=== PATIENT | male | born 1980 | race Caucasian/White ===

== ENCOUNTER 2025-01-23 08:28 | Emergency (ER) | payer OTHER ==
[~2025-01-23] VITALS: Ht 185.4 cm; Wt 93.0 kg
[2025-01-23] MEDS ORDERED: OLANZAPINE 10 MG VIAL IM ONE (09:46)
[2025-01-23] MEDS ORDERED: ONDANSETRON HCL/PF 4 MG/2 ML VIAL ONE ×2 (09:46→10:38)
[2025-01-23] MEDS ORDERED: PANTOPRAZOLE 40 MG VIAL ONE (09:46)
[2025-01-23] MEDS: OLANZAPINE 10 MG VIAL IM ONE (09:56)
[2025-01-23] MEDS: PANTOPRAZOLE 40 MG VIAL IV ONE (09:57)
[2025-01-23] MEDS: IV NS 0.9% 1,000 ML BAG IV ONE (09:57)
[2025-01-23] MEDS: ONDANSETRON HCL/PF 4 MG/2 ML VIAL IVP ONE (09:58)
[2025-01-23 10:01] LABS: PLATELET COUNT (AUTO) 268 K/uL (150-450); RED BLOOD CELL COUNT(AUTO) 5.20 MIL/uL (4.5-6.0); RED CELL DISTRIBUTION WIDTH 13.9 % (11.5-15.0); WHITE BLOOD COUNT (AUTO) 7.5 K/uL (4.3-11.0)
[2025-01-23 10:09] LABS: CALCIUM, SERUM 9.5 mg/dL (8.5-10.1); CREATININE 0.8 mg/dL (0.6-1.3); SODIUM SERUM 138.0 mmol/L (136-145); UREA NITROGEN, BLOOD 13.0 mg/dL (7-18)
[2025-01-23 10:13] LABS: INR 0.98 (0.91-1.10)
[2025-01-23 10:15] LABS: ASPARTATE AMINOTRANSFERASE 29.0 U/L (15-37); TOTAL PROTEIN, SERUM 8.6 g/dL (6.4-8.2)
[2025-01-23] MEDS: ONDANSETRON HCL/PF 4 MG/2 ML VIAL IV ONE (10:40)
[2025-01-23] MEDS ORDERED: ONDA4TAB5 PO (11:07)
[2025-01-23 11:41] VITALS: BP 139/74; TEMP 98.7; O2SAT 99
== END 2025-01-23 11:42 | disposition home or self-care (01) ==
LOC: ER 08:43
DX: R11.10 Vomiting, unspecified (principal); F19.10 Other psychoactive substance abuse, uncomplicated; F41.9 Anxiety disorder, unspecified; F32.A Depression, unspecified; R07.89 Other chest pain
CPT/HCPCS: 99285; 74176; 96374; 96361; 96375; 93005; 96376; 85025; 80048; 83690; 80076; 36415; 85730; 96372; J2405 ×2; J7030; J2470; J3490